=== PATIENT | male | born 1945 | race Caucasian/White ===

== ENCOUNTER → 2016-12-04 | Outpatient (CLI) | payer OTHER ==
[~2016-12-04] MED LIST: ADULT LOW DOSE81 MG PO; AUGMENTIN XR 11 EACH PO; CEPHALEXIN250 MG PO; DOXYCYCLINE HYC50 M1 PO; ERYTHROMYCIN E3.5 G1 OP; LISINOPRIL20 MG PO; LORTAB 5 MG/5001 TA1 PO; NOHOMEMEDICATIONS; PHENERGAN25 MG RE; TOPROL XL25 MG PO
--- NOTE | ~2016-12-04 | EKG ---
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
[2016-12-04 11:51] LABS: BASOPHILS 0.5 % (0.0-2.0); EOSINOPHILS 1.8 % (0.0-3.0); HEMATOCRIT 46.7 % (42.0-52.0); HEMOGLOBIN 16.3 gm/dL (14.0-18.0); LYMPHOCYTES 28.7 % (24.0-44.0); MCH 33.3 pg (26.0-34.0); MCHC 34.9 g/dL (28.0-37.0); MCV 95.4 fL (80.0-100.0); MONOCYTES 10.6 % (1.0-8.0); PLATELET COUNT 280 thou/uL (150-400); POLYS 58.4 % (36.0-66.0); RBC 4.89 mil/uL (4.50-6.00); RDW 13.1 % (10.5-14.5); WBC 6.9 thou/uL (4.0-11.0)
[2016-12-04 11:53] LABS: MANUAL DIFF NO
[2016-12-04 12:07] LABS: ALBUMIN 3.5 g/dL (3.4-5.0); CALCIUM 9.5 mg/dL (8.5-10.1); POTASSIUM 4.3 mmol/L (3.5-5.1); TOTAL BILIRUBIN 0.4 mg/dL (<0.1-1.0); TOTAL PROTEIN 7.5 g/dL (6.4-8.2)
== END ==
LOC: CV 11:11
PROVIDERS: Otolaryngology Plastic Surgery within the Head & Neck
DX: C44.121 Squamous cell carcinoma of skin of unspecified eyelid, including canthus (principal); J32.2 Chronic ethmoidal sinusitis; J32.3 Chronic sphenoidal sinusitis; J32.1 Chronic frontal sinusitis; J32.0 Chronic maxillary sinusitis; J34.2 Deviated nasal septum; J34.3 Hypertrophy of nasal turbinates; R04.0 Epistaxis; J33.9 Nasal polyp, unspecified